=== PATIENT | male | born 1950 | race Hispanic/Latino ===

== ENCOUNTER 2025-02-24 09:09 | Emergency (ER) | payer OTHER ==
[~2025-02-24] VITALS: Ht 177.8 cm; Wt 97.5 kg
[2025-02-24] MEDS ORDERED: SEROQUEL50 MG PO (10:04)
[2025-02-24] MEDS ORDERED: METOPROLOL SUCC50 MG PO (10:06)
[2025-02-24] MEDS ORDERED: IMITREX50 MG PO (10:06)
[2025-02-24 10:12] VITALS: PULSE 68; RESP 18; TEMP 97.8; O2SAT 96
== END 2025-02-24 10:12 | disposition home or self-care (01) ==
LOC: FSED 09:40
DX: I10 Essential (primary) hypertension (principal); F32.A Depression, unspecified; Z87.898 Personal history of other specified conditions
CPT/HCPCS: 99283